=== PATIENT | female | born 1980 | race Caucasian/White ===

== ENCOUNTER 2016-03-30 17:10 | Emergency (ER) | payer OTHER ==
[~2016-03-30] VITALS: Ht 162.6 cm; Wt 59.6 kg
[~2016-03-30 17:10] MED LIST: FLAGYL500 MG PO; FLONASE16 G1 BOTH NARES; SEROQUEL100 MG PO; VIBRAMYCIN100 MG PO
[2016-03-30] MEDS ORDERED: NORCO 7.5/321 TABLET PO (17:55)
[2016-03-30] MEDS ORDERED: MOTRIN600 MG PO (17:55)
[2016-03-30 18:23] VITALS: BP 120/82
== END 2016-03-30 18:24 | disposition home or self-care (01) ==
LOC: EME 17:10
DX: S22.32XA Fracture of one rib, left side, initial encounter for closed fracture (principal); F17.200 Nicotine dependence, unspecified, uncomplicated; W18.30XA Fall on same level, unspecified, initial encounter; Y93.23 Activity, snow (alpine) (downhill) skiing, snowboarding, sledding, tobogganing and snow tubing; Z88.0 Allergy status to penicillin
CPT/HCPCS: 71101; 99281; 99284; J1885